=== PATIENT | male | born 1960 | race Caucasian/White ===

== ENCOUNTER 2017-07-31 11:24 | Emergency (ER) | payer MEDICARE, MEDICAID ==
[~2017-07-31] VITALS: Ht 162.6 cm; Wt 84.1 kg
[~2017-07-31 11:24] MED LIST: CARI350T PO; CEPH500B PO; CLON1TAB4 PO; HYDR8TAB2 PO; ZOLP10 PO
[2017-07-31] MEDS ORDERED: DIAZ5 PO (11:45)
[2017-07-31] MEDS ORDERED: VIST50 PO (11:45)
[2017-07-31] MEDS ORDERED: DIVA500T35 PO (11:45)
[2017-07-31] MEDS ORDERED: CHLO50 PO (11:45)
[2017-07-31 11:50] LABS: BASOPHILS # (AUTO) 0.05 K/uL (0.00-0.20); BASOPHILS % (AUTO) 0.7 % (0.0-2.0); EOSINOPHILS # (AUTO) 0.13 K/uL (0.00-0.70); EOSINOPHILS % (AUTO) 1.66 % (1.0-6.0); HEMATOCRIT 40.2 % (41-53); HEMOGLOBIN 13.6 g/dL (13.5-17.5); LYMPHOCYTES # (AUTO) 1.3 K/uL (1.0-4.8); LYMPHOCYTES % (AUTO) 16.5 % (22.0-44.0); MEAN CORPUSCULAR HEMOGLOBIN 29.4 pg (26.0-34.0); MEAN CORPUSCULAR HGB CONC 33.9 G/dL (31.0-37.0); MEAN CORPUSCULAR VOLUME 87 fL (80-100); MONOCYTES # (AUTO) 0.9 K/uL (0.1-1.0); MONOCYTES % (AUTO) 11.4 % (2.0-9.0); NEUTROPHILS # (AUTO) 5.4 K/uL (1.8-7.7); NEUTROPHILS % (AUTO) 69.8 % (40.0-70.0); PLATELET COUNT (AUTO) 285 K/uL (150-450); RED BLOOD CELL COUNT(AUTO) 4.63 MIL/uL (4.50-5.90); RED CELL DISTRIBUTION WIDTH 15.4 % (11.5-14.5); WHITE BLOOD COUNT (AUTO) 7.7 K/uL (4.5-11.0)
[2017-07-31 11:58] LABS: ANION GAP 13 mmol/L (8-16); CALCIUM, TOTAL 8.6 mg/dL (8.8-10.5); CARBON DIOXIDE 23 mmol/L (22-29); CHLORIDE 108 mmol/L (98-107); CREATININE 1.09 mg/dL (0.60-1.30); GLOMERULAR FILTR. RATE CALC > 60 mL/min (>60); POTASSIUM 3.5 mmol/L (3.5-5.1); SODIUM SERUM 144 mmol/L (136-145); UREA NITROGEN, BLOOD 24 mg/dL (7-18)
[2017-07-31 12:04] LABS: ALANINE AMINOTRANSFERASE 42 U/L (12-78); ALBUMIN 3.7 g/dL (3.4-5.0); ASPARTATE AMINOTRANSFERASE 22 U/L (15-37); BILIRUBIN,TOTAL 0.4 mg/dL (0.1-1.0); TOTAL PROTEIN, SERUM 7.8 g/dL (6.4-8.2)
[2017-07-31] MEDS ORDERED: ACETAMINOPHEN 500 MG TABLET PO ONE (12:15)
[2017-07-31] MEDS ORDERED: DIAZEPAM 5 MG TABLET PO ONE (13:00)
[2017-07-31] MEDS ORDERED: ONDANSETRON HCL 4 MG/2 ML VIAL IM ONE (13:45)
[2017-07-31] MEDS ORDERED: LORazepam 2 MG/ML VIAL IM ONE (13:45)
[2017-07-31] MEDS ORDERED: MORPHINE SULFATE 4 MG/ML SYRINGE IM ONE (13:45)
[2017-07-31 14:58] VITALS: BP 122/77
== END 2017-07-31 15:00 | disposition home or self-care (01) ==
LOC: EMS 11:27
DX: F31.9 Bipolar disorder, unspecified (principal); F91.9 Conduct disorder, unspecified; M54.5 Low back pain; F17.210 Nicotine dependence, cigarettes, uncomplicated; Z88.5 Allergy status to narcotic agent
CPT/HCPCS: 36415; 72072; 72100; 80053; 80307; 85025; 96372; 99285; G0480; J2060; J2270; J2405

== ENCOUNTER 2017-08-14 15:31 | Inpatient (IN) | payer MEDICARE, MEDICAID ==
[~2017-08-14] VITALS: Ht 167.6 cm; Wt 86.8 kg
[~2017-08-14 15:31] MED LIST changes: +CHLO50 PO; +DIAZ5 PO; +DIVA500T35 PO; +VIST50 PO; -ZOLP10 PO; +ZOLP10TA7 PO
[2017-08-14 19:41] LABS: BASOPHILS % (AUTO) 0.5 % (0.0-2.0); EOSINOPHILS % (AUTO) 3.9 % (1.0-6.0); HEMATOCRIT 37.3 % (41-53); HEMOGLOBIN 12.9 g/dL (13.5-17.5); LYMPHOCYTES # (AUTO) 1.3 K/uL (1.0-4.8); LYMPHOCYTES % (AUTO) 18.4 % (22.0-44.0); MEAN CORPUSCULAR HEMOGLOBIN 29.8 pg (26.0-34.0); MEAN CORPUSCULAR HGB CONC 34.5 G/dL (31.0-37.0); MEAN CORPUSCULAR VOLUME 87 fL (80-100); MONOCYTES # (AUTO) 0.9 K/uL (0.1-1.0); MONOCYTES % (AUTO) 12.4 % (2.0-9.0); NEUTROPHILS # (AUTO) 4.5 K/uL (1.8-7.7); NEUTROPHILS % (AUTO) 64.8 % (40.0-70.0); PLATELET COUNT (AUTO) 330 K/uL (150-450); RED BLOOD CELL COUNT(AUTO) 4.31 MIL/uL (4.50-5.90); RED CELL DISTRIBUTION WIDTH 15.1 % (11.5-14.5); WHITE BLOOD COUNT (AUTO) 6.9 K/uL (4.5-11.0)
[2017-08-14 19:51] LABS: ANION GAP 11 mmol/L (8-16); CALCIUM, TOTAL 8.7 mg/dL (8.8-10.5); CARBON DIOXIDE 25 mmol/L (22-29); CHLORIDE 107 mmol/L (98-107); CREATININE 0.94 mg/dL (0.60-1.30); GLOMERULAR FILTR. RATE CALC > 60 mL/min (>60); POTASSIUM 3.8 mmol/L (3.5-5.1); SODIUM SERUM 143 mmol/L (136-145); UREA NITROGEN, BLOOD 15 mg/dL (7-18)
[2017-08-14 19:57] LABS: ALANINE AMINOTRANSFERASE 25 U/L (12-78); ALBUMIN 3.4 g/dL (3.4-5.0); ASPARTATE AMINOTRANSFERASE 18 U/L (15-37); BILIRUBIN,TOTAL 0.3 mg/dL (0.1-1.0); TOTAL PROTEIN, SERUM 7.6 g/dL (6.4-8.2)
[2017-08-14 21:55] VITALS: BP 92/63
[2017-08-14] MEDS ORDERED: ACETAMINOPHEN 325 MG TABLET PO PRN (22:15)
[2017-08-15 02:22] VITALS: BP 109/75
[2017-08-15] MEDS: ZOLPIDEM TARTRATE 10 MG TABLET PO PRN (02:28)
[2017-08-15] MEDS: IBUPROFEN 600 MG TABLET PO PRN ×2 (02:29→09:50)
[2017-08-15 07:17] LABS: CHOL/HDL RATIO 4.6 (4.2-7.3)
[2017-08-15 08:09] VITALS: BP 103/76
[2017-08-15 09:50] VITALS: BP 115/72
[2017-08-15] MEDS: LORazepam 2 MG TABLET PO PRN (09:50)
[2017-08-15] MEDS: RisperiDONE 1 MG TABLET PO SCH ×2 (12:28→18:59)
[2017-08-15] MEDS: DIVALPROEX SODIUM 500 MG DR TABLET PO SCH ×2 (12:28→18:58)
[2017-08-15] MEDS: LITHIUM CARBONATE 300 MG CAPSULE PO SCH ×2 (14:16→18:59)
[2017-08-15 17:56] VITALS: BP 101/82
[2017-08-16 03:33] VITALS: BP 103/69
[2017-08-16] MEDS: RisperiDONE 1 MG TABLET PO SCH ×2 (08:00→16:33)
[2017-08-16] MEDS: DIVALPROEX SODIUM 500 MG DR TABLET PO SCH ×2 (08:00→16:33)
[2017-08-16] MEDS: LITHIUM CARBONATE 300 MG CAPSULE PO SCH ×2 (08:00→16:33)
[2017-08-16 08:25] VITALS: BP 153/81
[2017-08-16] MEDS: LORazepam 2 MG TABLET PO PRN ×3 (09:35→21:15)
[2017-08-16] MEDS: LOPERAMIDE HCL 2 MG CAPSULE PO PRN (10:26)
[2017-08-16] MEDS: HALOPERIDOL 5 MG TABLET PO PRN ×2 (14:37→21:15)
[2017-08-16 17:05] VITALS: BP 143/94
[2017-08-17] MEDS: ZOLPIDEM TARTRATE 10 MG TABLET PO PRN ×3 (01:17→16:42)
[2017-08-17] MEDS: LOPERAMIDE HCL 2 MG CAPSULE PO PRN (06:12)
[2017-08-17] MEDS: RisperiDONE 1 MG TABLET PO SCH ×2 (07:53→16:27)
[2017-08-17] MEDS: DIVALPROEX SODIUM 500 MG DR TABLET PO SCH ×2 (07:53→16:27)
[2017-08-17] MEDS: LORazepam 2 MG TABLET PO PRN ×3 (07:53→16:48)
[2017-08-17] MEDS: LITHIUM CARBONATE 300 MG CAPSULE PO SCH ×2 (07:53→16:26)
[2017-08-17 08:55] VITALS: BP 121/83
[2017-08-17 09:20] LABS: BASOPHILS % (AUTO) 0.2 % (0.0-2.0); EOSINOPHILS % (AUTO) 1.4 % (1.0-6.0); HEMATOCRIT 50.2 % (41-53); HEMOGLOBIN 16.7 g/dL (13.5-17.5); LYMPHOCYTES # (AUTO) 0.8 K/uL (1.0-4.8); LYMPHOCYTES % (AUTO) 8.1 % (22.0-44.0); MEAN CORPUSCULAR HGB CONC 33.3 G/dL (31.0-37.0); MEAN CORPUSCULAR VOLUME 87 fL (80-100); MONOCYTES # (AUTO) 0.7 K/uL (0.1-1.0); MONOCYTES % (AUTO) 7.2 % (2.0-9.0); NEUTROPHILS # (AUTO) 8.3 K/uL (1.8-7.7); NEUTROPHILS % (AUTO) 83.1 % (40.0-70.0); PLATELET COUNT (AUTO) 307 K/uL (150-450); RED BLOOD CELL COUNT(AUTO) 5.76 MIL/uL (4.50-5.90)
[2017-08-17 09:22] LABS: WHITE BLOOD COUNT (AUTO) 19.4 K/uL (4.5-11.0)
[2017-08-17] MEDS: DIPHENOXYLATE/ATROP 2.5-0.025 MG TABLET PO PRN ×2 (09:32→14:00)
[2017-08-17] MEDS: HALOPERIDOL 5 MG TABLET PO PRN ×2 (09:33→16:46)
[2017-08-17 13:19] LABS: ALANINE AMINOTRANSFERASE 39 U/L (12-78); ALBUMIN 4.2 g/dL (3.4-5.0); ANION GAP 12 mmol/L (8-16); ASPARTATE AMINOTRANSFERASE 21 U/L (15-37); BILIRUBIN,TOTAL 0.2 mg/dL (0.1-1.0); CALCIUM, TOTAL 9.9 mg/dL (8.8-10.5); CARBON DIOXIDE 23 mmol/L (22-29); CHLORIDE 107 mmol/L (98-107); CREATININE 1.07 mg/dL (0.60-1.30); GLOMERULAR FILTR. RATE CALC > 60 mL/min (>60); POTASSIUM 4.5 mmol/L (3.5-5.1); SODIUM SERUM 142 mmol/L (136-145); TOTAL PROTEIN, SERUM 9.4 g/dL (6.4-8.2); UREA NITROGEN, BLOOD 11 mg/dL (7-18)
[2017-08-17 16:37] VITALS: BP 110/76
[2017-08-18 01:25] VITALS: BP 97/61
[2017-08-18] MEDS: DIPHENOXYLATE/ATROP 2.5-0.025 MG TABLET PO PRN (01:27)
[2017-08-18 04:19] VITALS: BP 97/61
[2017-08-18] MEDS: LOPERAMIDE HCL 2 MG CAPSULE PO PRN (07:58)
[2017-08-18] MEDS: LORazepam 2 MG TABLET PO PRN ×3 (07:58→16:51)
[2017-08-18] MEDS: RisperiDONE 1 MG TABLET PO SCH ×2 (08:03→16:03)
[2017-08-18] MEDS: DIVALPROEX SODIUM 500 MG DR TABLET PO SCH ×2 (08:03→16:03)
[2017-08-18] MEDS: HALOPERIDOL 5 MG TABLET PO PRN ×2 (09:00→15:40)
[2017-08-18 09:30] VITALS: BP 105/76
[2017-08-18] MEDS: CIPROFLOXACIN HCL 500 MG TABLET PO SCH ×2 (10:48→16:03)
[2017-08-18] MEDS: MetroNIDAZOLE 500 MG TABLET PO SCH ×2 (12:46→16:03)
[2017-08-18 16:29] VITALS: BP 119/93
[2017-08-19 03:19] VITALS: BP 107/74
[2017-08-19 06:52] LABS: LITHIUM 0.35 mmol/L (0.60-1.20)
[2017-08-19] MEDS: LORazepam 2 MG TABLET PO PRN ×2 (08:30→12:57)
[2017-08-19] MEDS: RisperiDONE 1 MG TABLET PO SCH ×2 (10:42→16:37)
[2017-08-19] MEDS: CIPROFLOXACIN HCL 500 MG TABLET PO SCH ×2 (10:42→16:37)
[2017-08-19] MEDS: HALOPERIDOL 5 MG TABLET PO PRN ×2 (10:42→20:11)
[2017-08-19] MEDS: MetroNIDAZOLE 500 MG TABLET PO SCH ×3 (10:42→16:37)
[2017-08-19] MEDS: DIVALPROEX SODIUM 500 MG DR TABLET PO SCH ×2 (10:43→16:37)
[2017-08-19 16:30] VITALS: BP 128/75
[2017-08-19 18:07] LABS: OVA AND PARASITES EXAM Final report
[2017-08-19] MEDS: ZOLPIDEM TARTRATE 10 MG TABLET PO PRN (20:11)
[2017-08-20] MEDS: DIPHENOXYLATE/ATROP 2.5-0.025 MG TABLET PO PRN (00:49)
[2017-08-20 03:26] VITALS: BP 127/71
[2017-08-20 08:42] VITALS: BP 118/73
[2017-08-20] MEDS: RisperiDONE 1 MG TABLET PO SCH ×2 (09:35→16:48)
[2017-08-20] MEDS: CIPROFLOXACIN HCL 500 MG TABLET PO SCH ×2 (09:36→16:48)
[2017-08-20] MEDS: DIVALPROEX SODIUM 500 MG DR TABLET PO SCH ×3 (09:36→16:48)
[2017-08-20] MEDS: MetroNIDAZOLE 500 MG TABLET PO SCH ×3 (09:36→16:48)
[2017-08-20] MEDS: LORazepam 2 MG TABLET PO PRN (09:40)
[2017-08-20 12:43] LABS: BASOPHILS % (AUTO) 0.3 % (0.0-2.0); EOSINOPHILS % (AUTO) 0 % (1.0-6.0); HEMATOCRIT 42.3 % (41-53); HEMOGLOBIN 14.5 g/dL (13.5-17.5); LYMPHOCYTES # (AUTO) 0.7 K/uL (1.0-4.8); LYMPHOCYTES % (AUTO) 4.6 % (22.0-44.0); MEAN CORPUSCULAR HEMOGLOBIN 29.4 pg (26.0-34.0); MEAN CORPUSCULAR HGB CONC 34.3 G/dL (31.0-37.0); MEAN CORPUSCULAR VOLUME 86 fL (80-100); MONOCYTES # (AUTO) 0.8 K/uL (0.1-1.0); MONOCYTES % (AUTO) 5.1 % (2.0-9.0); NEUTROPHILS # (AUTO) 14.7 K/uL (1.8-7.7); PLATELET COUNT (AUTO) 347 K/uL (150-450); RED BLOOD CELL COUNT(AUTO) 4.94 MIL/uL (4.50-5.90); RED CELL DISTRIBUTION WIDTH 14.7 % (11.5-14.5); WHITE BLOOD COUNT (AUTO) 16.3 K/uL (4.5-11.0)
[2017-08-20] MEDS ORDERED: QUET100T PO (13:00)
[2017-08-20] MEDS ORDERED: QUET25TA PO (13:00)
[2017-08-20] MEDS ORDERED: RISP1 PO (13:01)
[2017-08-20] MEDS: QUEtiapine FUMARATE 25 MG TABLET PO SCH (16:48)
[2017-08-20 17:05] VITALS: BP 127/82
[2017-08-20] MEDS ORDERED: QUEtiapine FUMARATE 100 MG TABLET PO SCH (21:00)
[2017-08-21] MEDS: LORazepam 2 MG TABLET PO PRN ×2 (05:58→09:11)
[2017-08-21] MEDS: HALOPERIDOL 5 MG TABLET PO PRN (05:58)
[2017-08-21 06:14] VITALS: BP 118/77
[2017-08-21 06:23] LABS: BASOPHILS % (AUTO) 0.3 % (0.0-2.0); EOSINOPHILS % (AUTO) 0.3 % (1.0-6.0); HEMATOCRIT 43.5 % (41-53); LYMPHOCYTES # (AUTO) 0.9 K/uL (1.0-4.8); LYMPHOCYTES % (AUTO) 8.6 % (22.0-44.0); MEAN CORPUSCULAR HEMOGLOBIN 29.5 pg (26.0-34.0); MEAN CORPUSCULAR HGB CONC 34.4 G/dL (31.0-37.0); MEAN CORPUSCULAR VOLUME 86 fL (80-100); MONOCYTES # (AUTO) 1.4 K/uL (0.1-1.0); MONOCYTES % (AUTO) 13.3 % (2.0-9.0); NEUTROPHILS # (AUTO) 8.2 K/uL (1.8-7.7); NEUTROPHILS % (AUTO) 77.5 % (40.0-70.0); PLATELET COUNT (AUTO) 345 K/uL (150-450); RED BLOOD CELL COUNT(AUTO) 5.08 MIL/uL (4.50-5.90); RED CELL DISTRIBUTION WIDTH 14.7 % (11.5-14.5); WHITE BLOOD COUNT (AUTO) 10.6 K/uL (4.5-11.0)
[2017-08-21] MEDS ORDERED: CIPR-278 PO (08:05)
[2017-08-21] MEDS ORDERED: METR500 PO (08:05)
[2017-08-21 08:20] VITALS: BP 123/69
[2017-08-21] MEDS: RisperiDONE 1 MG TABLET PO SCH (09:09)
[2017-08-21] MEDS: QUEtiapine FUMARATE 25 MG TABLET PO SCH (09:09)
[2017-08-21] MEDS: MetroNIDAZOLE 500 MG TABLET PO SCH ×2 (09:09→13:04)
[2017-08-21] MEDS: CIPROFLOXACIN HCL 500 MG TABLET PO SCH (09:09)
[2017-08-21] MEDS: DIVALPROEX SODIUM 500 MG DR TABLET PO SCH ×2 (09:10→13:04)
[2017-08-21 20:15] LABS: STOOL GIARDIA ANTIGEN BY EIA Negative (Negative)
== END 2017-08-21 14:55 | DRG 885 ==
LOC: EMS 15:36 → 3EX 20:57
PROVIDERS: ADMIT Psychiatry & Neurology Psychiatry; ATTEND Psychiatry & Neurology Psychiatry
DX: F25.9 Schizoaffective disorder, unspecified (principal); F31.9 Bipolar disorder, unspecified; F41.9 Anxiety disorder, unspecified; G47.00 Insomnia, unspecified; G56.00 Carpal tunnel syndrome, unspecified upper limb; G89.29 Other chronic pain; H54.0 Blindness, both eyes; K21.9 Gastro-esophageal reflux disease without esophagitis; Z87.891 Personal history of nicotine dependence; Z88.5 Allergy status to narcotic agent; Z86.19 Personal history of other infectious and parasitic diseases
CPT/HCPCS: 87045; 87081; 87177; 87324; 87329; 87449; 99285; G0480

== ENCOUNTER 2019-02-03 20:00 | Emergency (ER) | payer MEDICARE, MEDICAID ==
[~2019-02-03] VITALS: Ht 160 cm; Wt 95.5 kg
[~2019-02-03 20:00] MED LIST changes: -CARI350T PO; -CEPH500B PO; -CHLO50 PO; +CIPR-278 PO; -CLON1TAB4 PO; -DIAZ5 PO; +DIVA-78 PO; -DIVA500T35 PO; -HYDR8TAB2 PO; +METR500 PO; +QUET100T PO; +QUET25TA PO; +RISP1 PO; -VIST50 PO; -ZOLP10TA7 PO
[2019-02-03 20:15] VITALS: BP 130/86
[2019-02-03] MEDS ORDERED: OXYC10 PO (20:29)
== END 2019-02-03 22:06 | disposition home or self-care (01) ==
LOC: EMS 20:01
DX: J34.0 Abscess, furuncle and carbuncle of nose (principal); F41.9 Anxiety disorder, unspecified; F31.9 Bipolar disorder, unspecified; G89.29 Other chronic pain; F17.210 Nicotine dependence, cigarettes, uncomplicated; Z88.5 Allergy status to narcotic agent

== ENCOUNTER 2019-07-03 18:18 | Emergency (ER) | payer MEDICARE, MEDICAID ==
[~2019-07-03] VITALS: Ht 162.6 cm; Wt 94.5 kg
[~2019-07-03 18:18] MED LIST changes: -CIPR-278 PO; -METR500 PO; +OXYC10 PO
[2019-07-03] MEDS ORDERED: KETOROLAC TROMETHAMINE 30 MG/ML VIAL IM ONE (20:00)
[2019-07-03] MEDS ORDERED: VITAD50000 PO (20:53)
[2019-07-03] MEDS ORDERED: HYDR50CA10 PO (20:53)
[2019-07-03] MEDS ORDERED: TRAM50TA4 PO (20:53)
[2019-07-03] MEDS ORDERED: OXYC-522 PO (20:53)
[2019-07-03] MEDS ORDERED: RISP1 PO (20:53)
[2019-07-03] MEDS ORDERED: DULO30CA52 PO (20:53)
[2019-07-03] MEDS ORDERED: CELE100 PO (20:53)
[2019-07-03] MEDS ORDERED: OXYC10 PO (20:53)
[2019-07-03] MEDS ORDERED: GABA-531 PO (20:53)
[2019-07-03 20:59] LABS: APPEARANCE,URINE CLEAR (CLEAR); BILIRUBIN,URINE NEGATIVE (NEGATIVE); GLUCOSE, URINE (UA) NEGATIVE (NEGATIVE); KETONES,URINE NEGATIVE (NEGATIVE); LEUKOCYTE ESTERASE ,URINE NEGATIVE (NEGATIVE); NITRATE,URINE NEGATIVE (NEGATIVE); OCCULT BLOOD,URINE NEGATIVE (NEGATIVE); PH,URINE 5.5 (5.0-8.0); PROTEIN,URINE NEGATIVE (NEGATIVE); UROBILINOGEN,URINE 0.2 mg/dL (<=1.0)
[2019-07-03 21:04] LABS: AMPHET/METH SCREEN,URINE NEGATIVE (NEGATIVE); BARBITURATE SCREEN, URINE NEGATIVE (NEGATIVE); BENZODIAZEPINES SCREEN,URINE NEGATIVE (NEGATIVE); CANNABINOID SCREEN,URINE NEGATIVE (NEGATIVE); COCAINE SCREEN,URINE NEGATIVE (NEGATIVE); METHADONE SCREEN, URINE NEGATIVE (NEGATIVE); OPIATE SCREEN,URINE POSITIVE (NEGATIVE); PHENCYCLIDINE SCREEN,URINE NEGATIVE (NEGATIVE)
[2019-07-03 21:39] VITALS: BP 120/62
== END 2019-07-03 21:45 | disposition home or self-care (01) ==
LOC: EMS 18:20
DX: G89.29 Other chronic pain (principal); M54.5 Low back pain; F41.9 Anxiety disorder, unspecified; F31.9 Bipolar disorder, unspecified; F17.210 Nicotine dependence, cigarettes, uncomplicated; Z88.5 Allergy status to narcotic agent
CPT/HCPCS: 80307; 81003; 96372; 99283; J1885

== ENCOUNTER 2019-07-04 23:56 | Emergency (ER) | payer MEDICARE, MEDICAID ==
[~2019-07-04] VITALS: Ht 162.6 cm; Wt 84.5 kg
[~2019-07-04 23:56] MED LIST changes: +CELE100 PO; -DIVA-78 PO; +DULO30CA52 PO; +GABA-531 PO; +HYDR50CA10 PO; +OXYC-522 PO; -QUET100T PO; -QUET25TA PO; +TRAM50TA4 PO; +VITAD50000 PO
[2019-07-05] MEDS ORDERED: KETOROLAC TROMETHAMINE 30 MG/ML VIAL IM ONE (04:15)
[2019-07-05 04:36] VITALS: BP 130/80
== END 2019-07-05 04:45 | disposition home or self-care (01) ==
LOC: EMS 07-05
DX: M54.5 Low back pain (principal); F31.9 Bipolar disorder, unspecified; F17.210 Nicotine dependence, cigarettes, uncomplicated; G89.29 Other chronic pain; F41.9 Anxiety disorder, unspecified; Z88.5 Allergy status to narcotic agent
CPT/HCPCS: 96372; 99283; 99406; J1885